=== PATIENT | female | born 1975 | race Caucasian/White ===

== ENCOUNTER 2018-05-22 11:54 | Observation (INO) ==
[2018-05-22] MEDS ORDERED: Lidocaine PF 1% Inj 5 ML Syringe INFILTRATN ONE (12:00)
[2018-05-22] MEDS ORDERED: Glycopyrrolate Inj 1 MG/5 ML Syringe IV.PUSH ONE (12:00)
[2018-05-22] MEDS ORDERED: Neostigmine Inj 5 MG/5 ML Syringe IV.PUSH ONE (12:00)
[2018-05-22] MEDS ORDERED: Metoprolol Tartrate 25 MG Tablet PO SCH (13:30)
[2018-05-22] MEDS ORDERED: Chlorhexidine Gluconate 2% 1 Pack (2 Cloths) TOPICAL SCH (13:30)
[2018-05-22] MEDS ORDERED: Sodium Chlor 0.9% Inj 500 ML IV.SIG SCH (14:00)
[2018-05-22] MEDS ORDERED: fentaNYL Citrate Inj 100 MCG/2 ML Ampul ONE ×2 (18:29→20:30)
[2018-05-22] MEDS ORDERED: HYDROmorphone PF Inj 1 MG/ML Ampul IV.PUSH PRN (21:07)
[2018-05-22] MEDS ORDERED: Zolpidem Tartrate 5 MG Tablet PO PRN (21:07)
[2018-05-22] MEDS ORDERED: *morphine SULFATE 4 MG/ML PERIprocedure ONLY ONE (21:13)
[2018-05-23] MEDS: Ibuprofen 600 MG Tablet PO PRN ×2 (02:21→10:31)
[2018-05-23 06:31] LABS: Baso % (Auto) 0.3 % (0.0-2.0); Hematocrit 38.3 % (35.0-46.0); Hemoglobin 12.8 gm/dL (11.6-15.3); Lymph # (Auto) 0.9 th/mm3 (1.0-4.8); Lymph % (Auto) 8.6 % (9.0-44.0); Mean Corpuscular HGB Conc 33.5 % (32.0-36.0); Mean Corpuscular Hemoglobin 27.4 pg (27.0-34.0); Mean Corpuscular Volume 81.8 fL (80.0-100.0); Mean Platelet Volume 8.1 fL (7.0-11.0); Mono # (Auto) 0.2 th/mm3 (0.0-0.9); Mono % (Auto) 2.2 % (0.0-8.0); Neut # (Auto) 9.7 th/mm3 (1.8-7.7); Neut % (Auto) 88.9 % (16.0-70.0); Platelet Count 247 th/mm3 (150-450); Red Blood Count 4.68 mil/mm3 (4.00-5.30); Red Cell Distribution Width 14.9 % (11.6-17.2); White Blood Count 10.9 th/mm3 (4.0-11.0)
[2018-05-23 06:55] LABS: Calcium 8.6 mg/dL (8.5-10.1); Carbon Dioxide 25.6 meq/L (21.0-32.0); Potassium 4.1 meq/L (3.5-5.1)
--- NOTE | 2018-05-23 07:41 | MP ---
cc: Cayden Snow MD DATE OF OPERATION: 05/22/2018 PREOPERATIVE DIAGNOSES: 1. Severe dysmenorrhea. 2. Dyspareunia. 3. Menorrhagia. POSTOPERATIVE DIAGNOSES: 1. Severe dysmenorrhea. 2. Dyspareunia. 3. Menorrhagia. PROCEDURE PERFORMED: Laparoscopic-assisted supracervical hysterectomy and bilateral salpingectomy. TYPE OF ANESTHESIA: General endotracheal intubation. SURGEON: Cayden Snow MD FINDINGS: Examination under anesthesia, the cervix was clean, without lesions, no polyps seen. The laparoscopic exam revealed a globular, enlarged uterus, probably 8-week size. The fallopian tubes are normal in length and caliber. The ovaries were normal. There was a small cyst on the left ovary, which we aspirated. The posterior and anterior cul-de-sacs were clean. There was no endometriosis or scar tissue. COMPLICATIONS: None. COUNTS: Correct. ESTIMATED BLOOD LOSS: 150 mL FLUIDS: Crystalloids. CONDITION: The patient tolerated the procedure well, went to the recovery room in good condition. PROCEDURE IN DETAIL: The patient was taken to the operating room, identified by name band and verbally, She was given a general anesthetic, intubated, prepped and draped for laparoscopic surgery using the Neo stirrups. Great care was taken in positioning the legs to avoid any kind of nerve damage. Examination under anesthesia was carried out. A weighted speculum was placed in the vagina. The anterior lip of the cervix was grasped with a single-tooth tenaculum. A Hulka clamp was placed. Attention was turned to the umbilical area, a small incision was made and the Veress needle was used to create a pneumoperitoneum with three liters of CO2. A 5 mm trocar was placed in this area and the 5 mm laparoscope. To the left of the umbilicus a 10 mm scope was placed for the future use of the morcellator and another on the right side with a 5 mm third puncture. At this time using the uterine manipulator the infundibulopelvic ligaments were taken down with the Harmonic scalpel without difficulty. The round ligaments were taken down. The bladder flap was created. There was quite a bit of scarring from her previous sections. We took down the peritoneum off the lower uterine segment, lifted it and used hydrodissection to take the bladder down out of harm's away, away from the operative site. At this point the uterine vessels were skeletonized and the uterine vessels were taken with the Ligature at the level of the internal cervical os. At this point the uterus blanched out nicely and the cervix was amputated at this time at that level without difficulty using the Ligature and scissors. The Hulka clamp had to be removed before transecting the cervix. Once this had omLurred a sponge stick was placed in the vagina to manipulate the cervical stump. The cervical stump was manipulated and cauterized with the bipolar forceps. At this point hemostasis was excellent. All the pedicles were dry and the pelvis was irrigated with some fluid. The uterus, tubes and ovaries were then removed using the morcellator with excellent results. Again, the pelvis was irrigated with a large amount of fluid and all pedicles were again inspected and were dry. The laparoscope was removed under direct vision from the 10 mm port and the fascia was repaired with 2-0 Vicryl single stitch. The skin was repaired with a subcuticular stitch with excellent results. She tolerated the procedure well and went to the recovery room in good condition. R. MD HAYDEE Pisano/AMBROSE , 09:24 PM , 09:52 PM
[2018-05-23] MEDS ORDERED: Docusate Sodium 100 MG Capsule PO SCH (09:00)
--- NOTE | 2018-05-23 13:46 | P.PNOB ---
Assessment and Plan - Postoperative Procedures Operation Date: 05/22/18 14:00 Actual Procedures Side Surgeon p Laparoscopic assisted supracervical hysterectomy, bilateral salpingectomy Bilateral Richard Snow MD Postoperative day: 1 Postoperative status: doing well Postoperative plan: routine post-op care - Time Spent With Patient Total time spent is greater than 50% in coordination of care (as documented) at patient's floor/unit and/or counseling patient: less than 15 minutes Subjective Interval history: day one post op Subjective: patient reports feeling better Physical Exam Vital signs: Temp Pulse Resp BP Pulse Ox 98.2 F 76 18 120/75 96 05/23/18 12:36 05/23/18 12:36 05/23/18 12:36 05/23/18 12:36 05/23/18 12:36 - Constitutional no acute distress - Routine Respiratory Exam Present: CTA bilaterally - Routine Cardiovascular Exam Present: RRR - Routine Abdominal Exam Present: soft, normoactive bowel sounds Comments: band aids clean dry and intact - Routine Exam Comments: voiding without difficulty - Detailed Neurological Exam: Coma Scale Eye Opening: Spontaneous - Urinary Catheter Management Indwelling Urethral Catheter Cath placed during this visit: yes, but has since been removed by the nurse Removal date: 05/23/18 Removal time: 05:50 Results - Labs CBC & Chem 7: 05/23/18 05:46 05/23/18 05:46 Labs: Laboratory Results - last 24 hr 05/23/18 05/23/18 05:46 05:46 WBC 10.9 RBC 4.68 Hgb 12.8 Hct 38.3 MCV 81.8 MCH 27.4 MCHC 33.5 RDW 14.9 Plt Count 247 MPV 8.1 Neut % (Auto) 88.9 H Lymph % (Auto) 8.6 L [place] % (Auto) 2.2 Eos % (Auto) 0.0 Baso % (Auto) 0.3 Neut # (Auto) 9.7 H Lymph # (Auto) 0.9 L [place] # (Auto) 0.2 Eos # (Auto) 0.0 Baso # (Auto) 0.0 WBC Differential . Differential Comment Auto diff final Sodium 138 Potassium 4.1 Chloride 103 Carbon Dioxide 25.6 Anion Gap 9 BUN 8 Creatinine 0.88 Estimated GFR 70 L Random Glucose 153 H Calcium 8.6
== END 2018-05-23 14:45 | disposition home or self-care (01) ==
LOC: HSDC 11:54 → H1EA 11:54
PROVIDERS: ADMIT Obstetrics & Gynecology; ATTEND Obstetrics & Gynecology
PROC: LAPLASH (ICD-10-PCS; 2018-05-22 17:33)